=== PATIENT | female | born 1980 | race African-American/Black ===

== ENCOUNTER 2017-08-14 03:29 | Emergency (ER) | payer MEDICAID ==
[~2017-08-14] VITALS: Ht 188 cm; Wt 95.3 kg
[~2017-08-14 03:29] MED LIST: FLUTICASONE PRO16 G1 NASAL
[2017-08-14] MEDS ORDERED: DAPSONE100 MG ORAL (03:40)
[2017-08-14] MEDS ORDERED: TRIUMEQ (03:40)
[2017-08-14] MEDS ORDERED: HYDROCODON-ACE1 EA15 ORAL (03:56)
[2017-08-14] MEDS ORDERED: AMOXICILLIN500 MG ORAL (03:56)
--- NOTE | 2017-08-14 03:56 | Emergency Room Report ---
History of Present Illness General Chief Complaint: Toothache Source: Patient Present Illness HPI Is a 37-year-old transgender female who has a history HIV/AIDS. She is currently just started back on HIV medication and dapsone prophylactically. She presents with chief complaint of toothache. Onset around 4:30 PM today. Throbbing nature. Initially ibuprofen helped. No nausea vomiting. About a week and half ago she was on antibiotics. She needs a root canal and this has not been scheduled yet. Pain is 9/10. Throbbing in nature. Right lower jaw. Radiating to the ear. Allergies: Coded Allergies: SULFAMETHOXAZOLE (Verified Allergy, Unknown, 09/02/16) TRIMETHOPRIM (Verified Allergy, Unknown, 09/02/16) Patient History Past Medical History: see triage record, old chart reviewed, HIV Past Surgical History: other Pertinent Family History: none Social History: Denies: smoking Now: No Immunizations: other Reviewed Nursing Documentation: PMH: Agreed, PSxH: Agreed Nursing Documentation-PMH Past Medical History: No Stated History Review of Systems Eye: Denies: eye pain, blurred vision ENT: Denies: ear pain, nose congestion, throat swelling Respiratory: Denies: cough, shortness of breath Cardiovascular: Denies: chest pain, palpitations Gastrointestinal: Denies: abdominal pain, diarrhea, nausea, vomiting Musculoskeletal: Denies: back pain, joint pain Skin: Denies: rash Neurological: Denies: headache, numbness Endocrine: Denies: increased thirst, increased urine Hematologic/Lymphatic: Denies: easy bruising All Other Systems: negative except mentioned in HPI Physical Exam Vital Signs Date Time Temp Pulse Resp B/P (MAP) Pulse Ox O2 Delivery O2 Flow Rate FiO2 08/14/17 03:32 98.1 64 16 153/79 96 Room Air vitals was high blood pressure Sp02 EP Interpretation: reviewed, normal General Appearance: well appearing, no apparent distress, alert Head: normocephalic, atraumatic Eyes: bilateral eye PERRL, bilateral eye EOMI ENT: hearing grossly normal, normal pharynx, other - Right lower jaw: Tenderness over the second molar. No abscess noted. No trismus. Neck: full range of motion, supple, no meningismus Respiratory: chest non-tender, lungs clear, normal breath sounds Cardiovascular #1: regular rate, rhythm, no murmur Gastrointestinal: normal bowel sounds, non tender, no mass, no organomegaly, no bruit, non-distended Musculoskeletal: back normal, gait/station normal, normal range of motion Psychiatric: mood/affect normal Skin: warm/dry Procedures Additional Procedure Procedure Narrative Procedure: Dental block Indication: Toothache Description: Using a 21-gauge needle, I injected 2 mL of 1% lidocaine without epinephrine into the inferior alveolar ridge. Patient had good pain control. She tolerated the procedure without a problem. No complication. Medical Decision Making Diagnostic Impression: Primary Impression: Toothache ER Course Patient with dental pain infection. We'll start antibiotics and pain medication. Will followup as an outpatient with dentist. No abscess noted. Last Vital Signs Date Time Temp Pulse Resp B/P (MAP) Pulse Ox O2 Delivery O2 Flow Rate FiO2 08/14/17 03:32 98.1 64 16 153/79 96 Room Air Status: improved Disposition: HOME, SELF-CARE Condition: Stable Scripts Hydrocodone/Acetaminophen 5-325* (HYDROCODONE/ACETAMINOPHEN 5-325*) 1 Each Tablet 1 TAB ORAL Q6H Y for For Pain, #20 TAB 0 Refills Prov: LÓPEZ HUMPHREYS M.D. 08/14/17 Amoxicillin* (AMOXIL*) 500 Mg Capsule 500 MG ORAL THREE TIMES A DAY, #21 CAP Prov: LÓPEZ HUMPHREYS M.D. 08/14/17 Patient Instructions: Dental Pain Additional Instructions: Followup with your dentist [facility]. Return if symptom worsen. LÓPEZ HUMPHREYS M.D. Aug 14, 2017 03:56
[2017-08-14 03:58] VITALS: BP 153/79
== END 2017-08-14 03:58 | disposition home or self-care (01) ==
LOC: EMR 03:52
DX: K08.89 Other specified disorders of teeth and supporting structures (principal); Z88.2 Allergy status to sulfonamides
CPT/HCPCS: 99284; Z7502

== ENCOUNTER 2017-09-15 13:59 | Emergency (ER) | payer MEDICAID ==
[~2017-09-15] VITALS: Ht 188 cm; Wt 94.3 kg
[~2017-09-15 13:59] MED LIST changes: +AMOXICILLIN500 MG ORAL; +DAPSONE100 MG ORAL; +HYDROCODON-ACE1 EA15 ORAL; +TRIUMEQ
[2017-09-15 14:03] VITALS: BP 141/88
--- NOTE | 2017-09-15 16:02 | Emergency Room Report ---
History of Present Illness General Chief Complaint: Generalized Weakness Source: Patient Present Illness HPI 37 presents to the ED c/o feeling unable to subconsciously take a full breath , and anxious x 2 days. Pt. reports having similar symptoms happen last week as well. no fevers or chills. reports intermittent dry cough with hx of asthma in the past. Denies night sweats or significant changes in weight. denies recent travel, ill contacts or dyspnea. pt. reports hormone use as she is transgender. denies cardiac hx, htn or hyperlipidemia. Denies CP, Palpitations, LOC, AMS, dizziness, Changes in Vision, Sensation, paresthesias, or a sudden severe headache. Allergies: Coded Allergies: SULFAMETHOXAZOLE (Verified Allergy, Unknown, 09/02/16) TRIMETHOPRIM (Verified Allergy, Unknown, 09/02/16) Patient History Past Medical History: see triage record Past Surgical History: none Pertinent Family History: none Last Menstrual Period: no cycle Immunizations: UTD Reviewed Nursing Documentation: PMH: Agreed, PSxH: Agreed Review of Systems All Other Systems: negative except mentioned in HPI Physical Exam Vital Signs Date Time Temp Pulse Resp B/P (MAP) Pulse Ox O2 Delivery O2 Flow Rate FiO2 09/15/17 14:03 98.2 95 18 141/88 100 Room Air Sp02 EP Interpretation: reviewed, normal General Appearance: no apparent distress, alert, GCS 15, non-toxic Head: normocephalic, atraumatic ENT: hearing grossly normal, normal voice Neck: full range of motion Respiratory: chest non-tender, lungs clear, normal breath sounds, no respiratory distress, no wheezing, speaking full sentences Cardiovascular #1: regular rate, rhythm, normal capillary refill Gastrointestinal: non tender, soft Musculoskeletal: back normal, gait/station normal, normal range of motion, non- tender Neurologic: alert, oriented x3, responsive, motor strength/tone normal, sensory intact, speech normal Skin: normal color, no rash, warm/dry, well hydrated Lymphatic: no adenopathy Medical Decision Making PA Attestation Dr. storm is my supervising Physician whom patient management has been discussed with. Diagnostic Impression: Primary Impression: Breath shortness Additional Impression: Anxious reaction ER Course 37 presents to the ED c/o feeling unable to subconsciously take a full breath , and anxious x 2 days. Pt. reports having similar symptoms happen last week as well. no fevers or chills. reports intermittent dry cough with hx of asthma in the past. Denies night sweats or significant changes in weight. denies recent travel, ill contacts or dyspnea. pt. reports hormone use as she is transgender. denies cardiac hx, htn or hyperlipidemia. Denies CP, Palpitations, LOC, AMS, dizziness, Changes in Vision, Sensation, paresthesias, or a sudden severe headache. Ddx considered but are not limited to anxiety, [place], PE, asthma, thyroid storm, hyperthyroid, EPS Vital signs: are WNL, pt. is afebrile H&PE are most consistent with anxiety reaction, no evidence to suggest cardiac pathology or PE. pt. does not have cardiac RF's. ORDERS: none required at this time, the diagnosis is clinical ED INTERVENTIONS: - Pt. given re-assurance, d/w pt. absence of PE signs or risk factors. d/w pt. that possibility of this being psychosomatic and possibly anxiety /stress driven. d/w pt. that I do not identify an Emergency condition at this time and that I recommend she followup with her primary care provider within 3-5 days for further evaluation. Discussed with patient to return promptly to the emergency department with worsening or new symptoms. DISCHARGE: At this time pt. is stable for d/c to home. Will provide printed patient care instructions, and any necessary prescriptions. Care plan and follow up instructions have been discussed with the patient prior to discharge. Last Vital Signs Date Time Temp Pulse Resp B/P (MAP) Pulse Ox O2 Delivery O2 Flow Rate FiO2 09/15/17 14:03 98.2 95 18 141/88 100 Room Air Disposition: HOME, SELF-CARE Condition: Stable Scripts Buspirone Hcl* (BUSPAR*) 10 Mg Tablet 10 MG ORAL PRN, #15 TAB 0 Refills Prov: Fiona Soares P.A. 09/15/17 Albuterol Sulfate* (ALBUTEROL SULFATE MDI*) 8.5 Gm Hfa.aer.ad 2 PUFF INH Q3H, #1 INH 0 Refills Prov: Fiona Soares P.A. 09/15/17 Referrals: NON PHYSICIAN (PCP) Patient Instructions: Generalized Anxiety Disorder, Medical Screening Exam Additional Instructions: Take medications as directed. Follow up with a Primary Care Provider in 3-5 days, even if your symptoms have resolved. --Please review list of primary care clinics, if you do not already have a primary care provider Return sooner to ED if new symptoms occur, or current symptoms become worse. - Please note that this Emergency Department Report was dictated using [employer] wheelchair mechanic technology software, occasionally this can lead to erroneous entry secondary to interpretation by the dictation equipment. Fiona Soares Sep 15, 2017 16:02
[2017-09-15] MEDS ORDERED: ALBUTEROL SULF8.5 GM INH (16:03)
[2017-09-15] MEDS ORDERED: BUSPAR10 MG ORAL (16:03)
[2017-09-15 16:25] VITALS: BP 137/87
== END 2017-09-15 16:27 | disposition home or self-care (01) ==
LOC: EMR 15:27
DX: R06.02 Shortness of breath (principal); F41.9 Anxiety disorder, unspecified; Z88.2 Allergy status to sulfonamides
CPT/HCPCS: 99283

== ENCOUNTER 2018-02-18 06:50 | Emergency (ER) | payer MEDICAID ==
[~2018-02-18] VITALS: Ht 188 cm; Wt 90.7 kg
[~2018-02-18 06:50] MED LIST changes: +ALBUTEROL SULF8.5 GM INH; +BUSPAR10 MG ORAL
[2018-02-18] MEDS ORDERED: IBUPROFEN600 MG ORAL (07:06)
[2018-02-18] MEDS ORDERED: CLINDAMYCIN HC150 MG ORAL (07:06)
[2018-02-18] MEDS ORDERED: Dicyclomine HCl 10mg/5ml oral soln ORAL ONE (07:15)
[2018-02-18] MEDS ORDERED: Lidocaine 2% Visc 15ml soln ORAL ONE (07:15)
[2018-02-18] MEDS ORDERED: LOPERAMIDE2 MG PO (07:37)
[2018-02-18] MEDS ORDERED: DICYCLOMINE HCL10 MG PO (07:37)
--- NOTE | 2018-02-18 07:41 | Emergency Room Report ---
History of Present Illness General Chief Complaint: Abdominal Pain Source: Patient Present Illness HPI Patient is a 37-year-old who presented after increased abdominal discomfort. The patient presented having increased abdominal cramping associated with watery diarrhea. This had worsened after the patient ate some yogurt. The patient had vomited on the first day. Patient denies any hematemesis or bloody stools. The patient is transgender and denies any surgical procedures. The patient was having a prior history of HIV and states he's been taking Triameq and reportedly has normal CD4 count as well as undetectable viral load. The patient denies any fever.The patient denies any current nausea or vomiting Allergies: Coded Allergies: SULFAMETHOXAZOLE (Verified Allergy, Unknown, 09/02/16) TRIMETHOPRIM (Verified Allergy, Unknown, 09/02/16) Patient History Past Medical History: see triage record Now: No Reviewed Nursing Documentation: PMH: Agreed; PSxH: Agreed Nursing Documentation-PMH Past Medical History: No History, Except For Review of Systems All Other Systems: negative except mentioned in HPI Physical Exam Vital Signs Date Time Temp Pulse Resp B/P (MAP) Pulse Ox O2 Delivery O2 Flow Rate FiO2 02/18/18 07:03 98.5 84 14 140/86 100 Room Air 98.4 Sp02 EP Interpretation: reviewed, normal General Appearance: normal inspection, well appearing, no apparent distress, alert, GCS 15 Head: atraumatic ENT: normal ENT inspection, hearing grossly normal, normal voice Neck: normal inspection, full range of motion, supple, no bony tend Respiratory: normal inspection, lungs clear, normal breath sounds, no respiratory distress, no retraction, no wheezing Cardiovascular #1: regular rate, rhythm, no edema Gastrointestinal: normal inspection, normal bowel sounds, non tender, soft, no guarding, no hernia Genitourinary: no CVA tenderness Musculoskeletal: normal inspection, back normal, normal range of motion Neurologic: normal inspection, alert, oriented x3, responsive, professor of forest planning III-XII nml as tested, motor strength/tone normal, speech normal Psychiatric: normal inspection, judgement/insight normal, mood/affect normal Skin: normal inspection, normal color, no rash Medical Decision Making Diagnostic Impression: Primary Impression: Acute gastroenteritis ER Course Patient presented for abdominal pain. Differential diagnoses included ischemic bowel, appendicitis, perforated viscus, abdominal aortic aneurysm, inferior myocardial infarction, viral gastroenteritis Patient has a benign exam and does not appear to require any further imaging or laboratory testing at this time. The patient was given a GI cocktail. Patient is advised oral hydration.The patient is advised to follow up with primary care doctor in 1-2 days. Patient is advised to return if any worsening condition or if any changes in status that are concerning. This report is dictated with [employer] down filler software which may occasionally lead to discrepancies related to use of this software. Last Vital Signs Date Time Temp Pulse Resp B/P (MAP) Pulse Ox O2 Delivery O2 Flow Rate FiO2 02/18/18 07:03 98.5 84 14 140/86 100 Room Air 98.4 Status: improved Disposition: HOME, SELF-CARE Condition: Stable Scripts Dicyclomine Hcl* (DICYCLOMINE HCL*) 10 Mg Capsule 10 MG PO QID, #20 CAP Prov: Ayan Fields MD 02/18/18 Loperamide Hcl (LOPERAMIDE) 2 Mg Capsule 2 MG PO DAILY, #14 CAP Prov: Ayan Fields MD 02/18/18 Patient Instructions: Abdominal Pain, Adult Ayan Fields MD Feb 18, 2018 07:41
[2018-02-18] MEDS ORDERED: Sodium Chloride 500ML 500 ML IV ONE (08:00)
[2018-02-18 08:15] VITALS: BP 125/68
== END 2018-02-18 08:15 | disposition home or self-care (01) ==
LOC: EMR 08:00
DX: K52.9 Noninfective gastroenteritis and colitis, unspecified (principal); Z88.2 Allergy status to sulfonamides
CPT/HCPCS: 99284